=== PATIENT | male | born 1980 | race Caucasian/White ===

== ENCOUNTER 2020-02-09 08:18 | Outpatient (CLI) | payer OTHER | END 2020-02-09 08:23 | disposition home or self-care (01) | LOC: LAB 08:18 → EDBD 08:18 → LAB 08:23 | PROVIDERS: ATTEND Internal Medicine Hematology & Oncology | DX: D50.8 Other iron deficiency anemias (principal); I10 Essential (primary) hypertension; D69.6 Thrombocytopenia, unspecified; D51.1 Vitamin B12 deficiency anemia due to selective vitamin B12 malabsorption with proteinuria; D51.0 Vitamin B12 deficiency anemia due to intrinsic factor deficiency; E03.8 Other specified hypothyroidism; E06.3 Autoimmune thyroiditis; R97.0 Elevated carcinoembryonic antigen [CEA]; R97.8 Other abnormal tumor markers; D68.8 Other specified coagulation defects; D69.1 Qualitative platelet defects; E78.2 Mixed hyperlipidemia; K29.50 Unspecified chronic gastritis without bleeding ==

== ENCOUNTER 2020-02-09 10:40 | Outpatient (CLI) | payer OTHER | END 2020-02-09 10:45 | disposition home or self-care (01) | LOC: SONOGRAMA 10:40 | PROVIDERS: ATTEND Internal Medicine Hematology & Oncology | DX: D69.49 Other primary thrombocytopenia (principal); E78.2 Mixed hyperlipidemia; K29.50 Unspecified chronic gastritis without bleeding; E04.2 Nontoxic multinodular goiter ==

== ENCOUNTER 2020-04-07 11:51 | Outpatient (CLI) | payer OTHER | END 2020-04-07 11:53 | disposition home or self-care (01) | LOC: LAB 11:51 | PROVIDERS: ATTEND Internal Medicine Hematology & Oncology | DX: D50.8 Other iron deficiency anemias (principal); I10 Essential (primary) hypertension; D51.1 Vitamin B12 deficiency anemia due to selective vitamin B12 malabsorption with proteinuria; E78.2 Mixed hyperlipidemia; R94.5 Abnormal results of liver function studies; K29.60 Other gastritis without bleeding ==